=== PATIENT | female | born 1990 | race Caucasian/White ===

== ENCOUNTER 2023-04-18 21:40 | Emergency (ER) | payer BC, OTHER ==
[2023-04-18 21:52] VITALS: BP 112/71; PULSE 90; RESP 18; TEMP 98.3; BMI 25.6
[2023-04-19] MEDS ORDERED: DEXAMETHASONE SOD PHOSPHATE 10 MG/1 ML VIAL IM ONE (01:36)
[2023-04-19] MEDS ORDERED: CLINDAMYCIN HCL 300 MG CAPSULE PO ONE (01:36)
[2023-04-19] MEDS ORDERED: CLINDAMYCIN HCL 150 MG CAPSULE (FP) ONE (01:39)
[2023-04-19] MEDS ORDERED: DEXAMETHASONE SOD PHOSPHATE 10 MG/1 ML VIAL ONE (01:39)
== END 2023-04-19 01:44 | disposition home or self-care (01) ==
LOC: JERFT 21:40 → JER 21:40
PROC: 3E023GC Introduction of Other Therapeutic Substance into Muscle, Percutaneous Approach (ICD-10-PCS; principal; 2023-04-19)
DX: R22.42 Localized swelling, mass and lump, left lower limb (principal); L03.116 Cellulitis of left lower limb
CPT/HCPCS: 93971-TC; 99284-25; J1100